=== PATIENT | male | born 1960 ===

== ENCOUNTER 2022-10-01 14:13 | Emergency (ER) | payer SELFPAY ==
[2022-10-01] MEDS ORDERED: Lidocaine 1% MPF 2 ML VIAL ONE (15:09)
[2022-10-01] MEDS ORDERED: Lidocaine 1% (PF) 30 ML VIAL ONE (15:10)
[2022-10-01] MEDS ORDERED: Bacitracin 1 PK ONE (15:43)
[2022-10-01] MEDS ORDERED: Ketorolac Tromethamine 30 MG/ML VIAL ONE (15:55)
== END 2022-10-01 16:23 | disposition home or self-care (01) ==
LOC: ERS 14:13
DX: S01.411A Laceration without foreign body of right cheek and temporomandibular area, initial encounter (principal); I10 Essential (primary) hypertension; K21.9 Gastro-esophageal reflux disease without esophagitis; F17.210 Nicotine dependence, cigarettes, uncomplicated
CPT/HCPCS: 12013; 70450; J1885; J2001